=== PATIENT | male | born 1995 | race American Indian/Alaskan Native ===

== ENCOUNTER 2018-12-18 15:20 | Emergency (ER) | payer SELFPAY ==
--- NOTE | 2018-12-18 15:28 | Emergency Department Report ---
Blank Doc - Documentation Documentation: This is a 23-year-old male that presents with depression. Denies any SI/HI. This initial assessment/diagnostic orders/clinical plan/treatment(s) is/are subject to change based on patient's health status, clinical progression and re- assessment by fellow clinical providers in the ED. Further treatment and workup at subsequent clinical providers discretion. Patient/guardians urged not to elope from the ED as their condition may be serious if not clinically assessed and managed. 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 3- RN was notified to keep patient as close range and observation until room available
[2018-12-18 15:58] LABS: Basophils % (Auto) 0.6 % (0.0-1.8); Eosinophils # (Auto) 0.1 K/mm3 (0.0-0.4); Eosinophils % (Auto) 1.9 % (0.0-4.3); Hematocrit 45.7 % (35.5-45.6); Hemoglobin 15.6 gm/dl (11.8-15.2); Lymphocytes % (Auto) 42.5 % (13.4-35.0); Mean Corpuscular HGB Conc 34 % (32-34); Mean Corpuscular Volume 89 fl (84-94); Monocytes # (Auto) 0.3 K/mm3 (0.0-0.8); Monocytes % (Auto) 6.9 % (0.0-7.3); Platelet Count 259 K/mm3 (140-440); Red Blood Count 5.12 M/mm3 (3.65-5.03); Red Cell Distribution Width 13.4 % (13.2-15.2)
[2018-12-18 16:16] LABS: BUN/Creatinine Ratio 14; Blood Urea Nitrogen 11 mg/dL (9-20); Calcium 9.5 mg/dL (8.4-10.2); Hemolysis Index 27
--- NOTE | 2018-12-18 16:56 | Emergency Department Report ---
HPI - General Chief Complaint: Psych Time Seen by Provider: 12/18/18 15:25 - HPI HPI: 23-year-old -[place] male presents to the emergency department for a mental health evaluation secondary to his depression and some insomnia. The patient says that he has felt depressed for as long as he can remember. He has never seen a physician or been diagnosed with anything and is not on any medications for it. He says that there have been multiple events that have caused worsened his depression including his cousin being killed one year ago, his best friend killing himself 2 months ago, and some of the trials and troponin elevations that he has been through. The patient does admit that he has contemplated if it would make any difference if he was , he denies any thoughts or desires to harm himself and has never made any suicidal attempts. He denies any auditory or visual hallucinations or any homicidal ideations. He is an occasional tobacco smoker but denies any illicit drug use. ED Past Medical Hx - Past Medical History Previous Medical History?: Yes Hx Psychiatric Treatment: Yes (depression) - Surgical History Past Surgical History?: No - Social History Smoking Status: Current Every Day Smoker Substance Use Type: None - Medications Home Medications: Home Medications Medication Instructions Recorded Confirmed Last Taken Type No Known Home Medications [No 12/18/18 12/18/18 Unknown History Reported Home Medications] ED Review of Systems ROS: Stated complaint: INSOMNIA/DEPRESSION Other details as noted in HPI Comment: All other systems reviewed and negative Constitutional: denies: chills, fever Eyes: denies: eye pain, vision change ENT: denies: ear pain, throat pain Respiratory: denies: cough, shortness of breath Cardiovascular: denies: chest pain, palpitations Gastrointestinal: denies: abdominal pain, vomiting Genitourinary: denies: dysuria, discharge Musculoskeletal: denies: back pain, arthralgia Skin: denies: rash, lesions Neurological: denies: headache, weakness Psychiatric: depression. denies: auditory hallucinations, visual hallucinations, homicidal thoughts Physical Exam - Physical Exam Vital Signs: Vital Signs 12/18/18 15:27 Temperature 98.4 F Pulse Rate 59 L Respiratory 16 Rate Blood Pressure 131/75 O2 Sat by Pulse 98 Oximetry Physical Exam: GENERAL: The patient is well-developed well-nourished. HENT: Normocephalic. Atraumatic. Patient has moist mucous membranes. EYES: Extraocular motions are intact. NECK: Supple. Trachea is midline. CHEST/LUNGS: Clear to auscultation. There is no respiratory distress noted. HEART/CARDIOVASCULAR: Regular. There is no tachycardia. There is no murmur. ABDOMEN: Abdomen is soft, nontender. Patient has normal bowel sounds. There is no abdominal distention. SKIN: Skin is warm and dry. NEURO: The patient is awake, alert, and oriented. The patient is cooperative. The patient has no focal neurologic deficits. The patient has normal speech. MUSCULOSKELETAL: There is no tenderness or deformity. There is no evidence of acute injury. ED Course Vital Signs 12/18/18 15:27 Temperature 98.4 F Pulse Rate 59 L Respiratory 16 Rate Blood Pressure 131/75 O2 Sat by Pulse 98 Oximetry ED Medical Decision Making - Lab Data Result diagrams: 12/18/18 15:41 12/18/18 15:41 - Medical Decision Making This patient presents to the emergency department with a complaint of long- standing depression that seems to worsen over the past 3 days as well as some issues with insomnia. The patient admits that he thinks about , he denies any suicidal ideations or any previous attempts and the patient came in to get help. He says that he had a friend who "felt the same way that I do and ended up killing himself." The patient isn't receiving any psychiatrists and never has been formally diagnosed with depression and never has been on any medications. His vital signs were stable throughout his ED course. His labs have been unremarkable. He will remain overnight voluntarily and will see the psychiatric team in the morning for evaluation and further disposition. If the patient psychiatric treatment is deemed appropriate or necessary, I feel that the patient is medically cleared to do so. - Differential Diagnosis depression, bipolar disorder, substance abuse Critical Care Time: No Critical care attestation.: If time is entered above; I have spent that time in minutes in the direct care of this critically ill patient, excluding procedure time. ED Disposition Clinical Impression: Depression Qualifiers: Depression Type: unspecified Qualified Code(s): F32.9 - Major depressive disorder, single episode, unspecified Disposition: DC-01 TO HOME OR SELFCARE Is pt being admited?: No Condition: Stable Instructions: Depression (ED) Referrals: [facility] [Outside] - 2-3 Days Time of Disposition: 18:58
[2018-12-18 18:59] LABS: Mucus,Urine FEW /HPF; WBC,Urine < 1.0 /HPF (0.0-6.0)
[2018-12-18 19:00] LABS: Bilirubin,Urine NEG (Negative); Blood,Urine NEG (Negative); Color,Urine Yellow (Yellow); Protein,Urine <15 mg/dL mg/dL (Negative); Urobilinogen,Urine < 2.0 mg/dL (<2.0)
[2018-12-18 19:17] LABS: Amphetamine Screen,Urine PRESUMPTIVE NEGATIVE; Benzodiazepines Screen,Urine PRESUMPTIVE NEGATIVE; Cocaine Screen,Urine PRESUMPTIVE NEGATIVE; Methadone Screen,Urine PRESUMPTIVE NEGATIVE; Opiate Screen,Urine PRESUMPTIVE NEGATIVE
[2018-12-18 19:34] LABS: Cannabinoid Screen,Urine PRESUMPTIVE POSITIVE
[2018-12-19 01:38] VITALS: BP 93/58
--- NOTE | 2018-12-19 10:41 | Consultation ---
History of Present Illness - Reason for Consult Consult date: 12/19/18 Reason for consult: Mental Health [place] Requesting physician: VARSHA ODONNELL - Chief Complaint Chief complaint: "I needed to talk with someone" - History of Present Psychiatric Illness 23-year-old -[place] male presents to the emergency department for a mental health evaluation secondary to his depression and some insomnia. Today the patient was calm and cooperative during the assessment. He stated that he iis dealing with some stressors. He stated that he will be a father soon, and want more for his life. He stated that his parents are not local, so his support system consist of his girlfriend and her family. He stated that he has lost a friend and a family member to recently and asked himself several questions "why?" He acknowledged that he have thought about , but denies being suicidal when asked. He stated that he was depressed weeks ago about the changes in his life, but denies being depressed now. He stated that he would like to be referred to a therapist. He denies SI/HI's and AVH's. He denies a poor appetite, but admitted to sleep issues. He stated, "I have never gotten much sleep befor e." He denies alcohol consumption (etoh), but stated that he smoke marijuana "sometimes." Medications and Allergies Allergies Allergy/AdvReac Type Severity Reaction Status Date / Time No Known Allergies Allergy Verified 12/18/18 15:23 Home Medications Medication Instructions Recorded Confirmed Last Taken Type No Known Home Medications [No 12/18/18 12/18/18 Unknown History Reported Home Medications] Past psychiatric history - Past Medical History Past Medical History: No medical history Past Surgical History: No surgical history - past Psychiatric treatment and history psychiatric treatment history: Denies a psy hx and fam psy hx. - Social History Social history: other (reside with girlfriend) Mental Status Exam - Vital signs Last Vital Signs Temp 97.8 F 12/19/18 01:37 Pulse 54 L 12/19/18 01:37 Resp 18 12/19/18 01:37 BP 93/58 12/19/18 01:37 Pulse Ox 98 12/19/18 01:37 - Exam Narrative exam: MSE: Appearance: calm, cooperative Behavior: regular eye contact Speech: regular rate and tone Mood: "okay" Affect: congruent to mood Thought Process: logical Thought Content: denies SI/HI's and AVH's Motor Activity: sitting up in bed Cognition: A/O x3 Insight: appropriate Judgment: appropriate Results Result Diagrams: 12/18/18 15:41 12/18/18 15:41 Abnormal lab results 12/18/18 12/18/18 12/18/18 Range/Units 15:41 15:41 15:41 RBC 5.12 H (3.65-5.03) M/mm3 Hgb 15.6 H (11.8-15.2) gm/dl Hct 45.7 H (35.5-45.6) % Lymph % (Auto) 42.5 H (13.4-35.0) % Salicylates < 0.3 L (2.8-20.0) mg/dL Acetaminophen < 5.0 L (10.0-30.0) ug/mL All other labs normal. Assessment and Plan Assessment and plan: Impression: Adjustment DO. Insomnia. Hx of Cannabis use. Today the patient was calm and cooperative during the assessment. The patient is no threat to self. DDx: R/O MDD Recommendation/Plan: Discussed generalized coping skills with the patient. Recommended Melatonin for sleep and discussed proper sleep hygiene with the patient, he verbalized understanding. Dispo: The patient can follow up with [facility] for outpatient psy services ([facility]). Will staff with Dr Milly Clayton.
== END 2018-12-19 11:28 | disposition home or self-care (01) ==
LOC: ED 15:20 → EEVIPCON 15:20 → ED 12-19 11:28
DX: F32.9 Major depressive disorder, single episode, unspecified (principal); G47.00 Insomnia, unspecified; F17.200 Nicotine dependence, unspecified, uncomplicated
CPT/HCPCS: 36415; 80048; 80307; 81001; 85025; 99284; G0480; 80320